=== PATIENT | female | born 1990 | race Asian ===

== ENCOUNTER 2017-05-19 17:24 | Emergency (ER) | payer OTHER ==
[~2017-05-19] VITALS: Ht 157.5 cm; Wt 52.3 kg
[2017-05-19] MEDS ORDERED: NORCO, ANEXSIA 5/325MG TABLET (HYDROcodone/ACETAMINOPHEN) PO ONE (18:00)
[2017-05-19 18:12] LABS: MICROSCOPIC INDICATED? MAN YES (NO)
[2017-05-19 18:16] LABS: RBC, URINE TNTC /hpf (0-3); SQUAMOUS EPITHELIAL CELL URINE SMALL AMOUNT /hpf (SMALL AMT); WBC, URINE 15-20 /hpf (0-3)
[2017-05-19 18:17] LABS: BACTERIA, URINE SMALL AMOUNT
[2017-05-19 18:19] LABS: HYALINE CAST, URINE NONE SEEN /lpf (0-1); MICROSCOPIC EXAM PERFORMED
[2017-05-19] MEDS ORDERED: MACR100C43 PO ×2 (18:57→19:12)
[2017-05-19 19:15] VITALS: BP 125/68
[2017-05-19] MEDS ORDERED: NITROFURANTOIN (MACROBID) 100 MG CAP PO ONE (19:15)
== END 2017-05-19 19:18 | disposition home or self-care (01) ==
LOC: M ED 17:24
DX: N39.0 Urinary tract infection, site not specified (principal); R31.9 Hematuria, unspecified